=== PATIENT | male | born 1985 | race Caucasian/White ===

== ENCOUNTER 2020-12-06 14:45 | Emergency (ER) | payer MEDICAID, OTHER ==
[~2020-12-06] VITALS: Ht 182.9 cm; Wt 65.9 kg
[2020-12-06] MEDS ORDERED: SUBO8MIS SL (15:20)
[2020-12-06] MEDS ORDERED: IBUPROFEN 600MG TAB PO ONE (17:00)
[2020-12-06] MEDS ORDERED: CEPHALEXIN 500 MG CAP PO ONE (17:00)
[2020-12-06] MEDS ORDERED: CEPH500C PO (17:22)
[2020-12-06 17:31] VITALS: BP 148/76
== END 2020-12-06 17:37 | disposition home or self-care (01) ==
LOC: M ED 14:45
DX: L02.414 Cutaneous abscess of left upper limb (principal); Z20.822 Contact with and (suspected) exposure to COVID-19; F17.200 Nicotine dependence, unspecified, uncomplicated

== ENCOUNTER 2022-08-11 18:20 | Emergency (ER) | payer OTHER ==
[~2022-08-11] VITALS: Ht 182.9 cm; Wt 85.0 kg
[~2022-08-11 18:20] MED LIST: CEPH500C PO; SUBO8MIS SL
[2022-08-11 18:37] VITALS: BP 130/93
[2022-08-11 18:50] LABS: BASO % 0.3 % (0.0-1.0); EOS # 0.2 10^3/uL (0.0-0.5); EOS % 1.8 % (0.0-3.0); HEMATOCRIT 42.1 % (42.0-52.0); HEMOGLOBIN 13.6 g/dl (13.5-17.5); LYMPH # 1.9 10^3/uL (1.5-5.0); LYMPH % 15.8 % (24.0-44.0); MEAN CORPUSCULAR HGB CONC 32.3 g/dl (32.0-36.5); MEAN CORPUSCULAR VOLUME 92.7 fl (80.0-96.0); MONO # 0.9 10^3/uL (0.0-0.8); MONO % 7.7 % (2.0-8.0); NEUTROPHILS # 8.8 10^3/uL (1.5-8.5); NEUTROPHILS % 74.1 % (36.0-66.0); PLATELET COUNT, AUTOMATED 283 10^3/uL (150-450); RED BLOOD COUNT 4.54 10^6/uL (4.30-6.10); WHITE BLOOD COUNT 11.9 10^3/uL (4.0-10.0)
[2022-08-11] MEDS ORDERED: DEXTROSE 50% 50ML SYRINGE As Ordered ONE (18:54)
[2022-08-11] MEDS ORDERED: DEXTROSE 50% 50ML SYRINGE IV STA (18:55)
[2022-08-11 19:14] LABS: ETHYL ALCOHOL (ETHANOL) < 0.003 % (0.000-0.010)
[2022-08-11 19:15] LABS: ACETAMINOPHEN LEVEL < 2.0 UG/ML (10.0-20.0)
[2022-08-11 19:16] LABS: ALBUMIN 4.2 G/DL (3.2-5.2); ALKALINE PHOSPHATASE 106 U/L (46-116); ALT/SGPT 16 U/L (7.0-40); AST/SGOT 26 U/L (<34); BILIRUBIN,DIRECT 0.1 MG/DL (<0.4); BILIRUBIN,TOTAL 0.4 MG/DL (0.3-1.2); BLOOD UREA NITROGEN 18 MG/DL (9-23); CALCIUM LEVEL 9.2 MG/DL (8.5-10.1); CARBON DIOXIDE LEVEL 29 MMOL/L (20-31); CHLORIDE LEVEL 104 MMOL/L (98-107); CREATININE FOR GFR 0.97 MG/DL (0.70-1.30); GLOMERULAR FILTRATION RATE > 60.0 (>60); GLUCOSE, FASTING 53 MG/DL (60-100); POTASSIUM SERUM 3.7 MMOL/L (3.5-5.1); SALICYLATE LEVEL < 3.0 MG/DL (<30); SODIUM LEVEL 141 MMOL/L (136-145); TOTAL PROTEIN 8.1 G/DL (5.7-8.2)
[2022-08-11 19:18] LABS: THYROID STIMULATING HORMONE 1.618 uIU/ML (0.55-4.78)
[2022-08-11 19:19] LABS: CPK CREATINE PHOSPHOKINASE 233 U/L (46-171)
== END 2022-08-11 20:18 | disposition left against medical advice (07) ==
LOC: EDBD 18:20 → M ED 18:20
DX: T50.901A Poisoning by unspecified drugs, medicaments and biological substances, accidental (unintentional), initial encounter (principal); Y92.89 Other specified places as the place of occurrence of the external cause; F19.10 Other psychoactive substance abuse, uncomplicated; F17.200 Nicotine dependence, unspecified, uncomplicated